=== PATIENT | female | born 1970 | race Two or more races ===

== ENCOUNTER → 2017-12-13 | Outpatient (CLI) | payer OTHER | END | disposition home or self-care (01) | LOC: CFH 09:20 | PROVIDERS: ATTEND Specialist | DX: Z12.31 Encounter for screening mammogram for malignant neoplasm of breast (principal); Z01.419 Encounter for gynecological examination (general) (routine) without abnormal findings; Z80.3 Family history of malignant neoplasm of breast | CPT/HCPCS: 77063; 77067 ==